=== PATIENT | male | born 1975 | race Caucasian/White ===

== ENCOUNTER 2021-02-18 11:27 | Outpatient (REF) | payer OTHER, SELFPAY ==
[2021-02-18 13:00] LABS: Influenza A PCR NEGATIVE (Negative); Influenza B PCR NEGATIVE (Negative); Resp Syncy Virus RNA Qual PCR NEGATIVE (Negative); SARS COV2 PCR INHOUSE NEGATIVE (Negative)
== END 2021-02-18 11:28 | disposition home or self-care (01) ==
LOC: HO.LNP 11:27
PROVIDERS: Visit Provider Family Medicine
DX: Z20.822 Contact with and (suspected) exposure to COVID-19 (principal)
CPT/HCPCS: 0241U

== ENCOUNTER 2022-12-21 13:24 | Outpatient (AMB) | payer OTHER, SELFPAY ==
--- NOTE | 2022-12-21 13:26 | MHC.PC.OV ---
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 Device Required: No Accompanied by: Self / Same As Patient Allergies Seasonal Allergies Allergy (Verified 12/21/22 13:57) stuffy nose, headaches hay fever Allergy (Uncoded 12/21/22 13:57) cough, headaaches coughing Medication List - Last Reconciled 12/21/22 by Chano Mensah CNP emtricitabine-tenofovir (TDF) 200-300 mg (Truvada) 1 tab PO Q24H 30 days fluoxetine 20 mg PO DAILY 30 days Tobacco use date assessed: 12/21/22 Dental Screening Dental Screen Date: 12/21/22 Did you have a dental visit in the last 12 months?: Yes Did you have a dental problem in the last 6 months where you did not have access to dental care?: No Was dental information given to patient?: Patient has dentist HPI HPI Comments History of Present Illness Details 47-year-old male presents for anxiety and depression follow-up He notes that he recently got from his . He reports improvement of his anxiety and depression symptoms since his . He notes that he has more time to himself and feels more peaceful. He admits to taking his fluoxetine as prescribed. He denies acute symptoms. He notes that he exercises at the gym 5 days a week and runs 3-5 miles daily. [facility] Surgical History History of appendectomy Family History (Updated 12/21/22 @ 13:32 by Bravo Barksdale CMA) Mother Arthritis Mental health disorder Father Pancreatic cancer Family/Other Bipolar disorder Family/Other Mental health disorder Maternal Uncle Substance abuse Maternal Grandmother No problems noted. 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 1. Little interest or pleasure in doing things: nearly every day 2. Feeling down, depressed, or hopeless: several days 3. Trouble falling or staying asleep, or sleeping too much: more than half the days 4. Feeling tired or having little energy: several days 5. Poor appetite or overeating: not at all 6. Feeling bad about yourself - or that you are a failure or have let yourself or your family down: several days 7. Trouble concentrating on things, such as reading the newspaper or watching television: not at all 8. Moving or speaking so slowly that other people could have noticed. Or the opposite - being so fidgety or restless that you have been moving around a lot more than usual: not at all 9. Thoughts that you would be better off or of hurting yourself in some way: not at all Total score: 8 Depression Screening Interpretation: Positive Depression Screening Follow-up: Existing condition and In treatment 69342 - PHQ-9 Billing: Yes Source: Developed by Drs. Marquez Oates, Flora Hudson, Renaldo Mario and colleagues, with an educational zia from [employer]. Thrive Questionnaire Date Thrive assessed: 07/18/22 AUDIT C Alcohol Use Questionnaire (AUDIT-C) 1. How often do you have a drink containing alcohol?: 2-3 times a week 2. How many drinks containing alcohol do you have on a typical day when you are drinking?: 3 or 4 3. How often do you have six or more drinks on one occasion?: Never Total Score: 4 AMAN-7 AMB Questionnaire AMAN-7 Date AMAN - 7 assessed: 12/21/22 Feeling nervous, anxious, or on edge: 1 = Several days Not being able to stop or control worryin = Several days Worrying too much about different things: 1 = Several days Trouble relaxin = Several days Being so restless that it is hard to sit still: 0 = Not at all Becoming easily annoyed or irritable: 3 = Nearly every day Feeling afraid as if something awful might happen: 1 = Several days Total AMAN-7 score (0-4 normal; 5-9 mild; 10-14 moderate; 15-21 severe): 8 Source: Developed by Drs. Marquez Oates, Flora Hudson, Renaldo Mario and colleagues, with an educational zia from [employer]. AMAN-7 Assessment Billing AMAN-7 Assessment Tool: AMAN-7 Assessment 77156 Review of Systems Const Details: Const Denies chills, Denies fatigue, Denies fever(s), Denies headache(s) and Denies weakness ENT Denies dizziness and Denies headache(s) Card Denies chest pain, Denies lightheadedness, Denies dyspnea and Denies other (Palpitations) Resp Denies cough, Denies dyspnea, Denies wheezing and Denies other ( shortness of breath) GI Denies abdominal pain, Denies melena, Denies hematochezia, Denies change in bowel habits, Denies dyspepsia and Denies nausea Denies hematuria and Denies dysuria Musc Denies abnormal gait, Denies myalgias, Denies arthralgias, Denies numbness and Denies tingling Skin/Breast Denies rash, Denies unusual bruising and Denies wounds Neuro Denies abnormal gait, Denies dizziness, Denies headache(s), Denies memory loss, Denies numbness, Denies Sensory deficit (Neuro), Denies tingling and Denies weakness Psych Denies anxiety and Denies depression, Denies memory loss Endo Denies fatigue Aller/Immun Denies wheezing Physical exam (Primary Care) Vital Signs: Last Vital Signs Pulse 76 12/21/22 13:28 BP 132/70 12/21/22 13:28 Pulse Ox 98 12/21/22 13:28 BMI result Body Mass Index 24.7 Tobacco/Smoking Status: Tobacco use Status Tobacco use date assessed 12/21/22 12/21/22 13:37 Patient Tobacco Use Status Former Tobacco user 12/21/22 13:37 e-Cigarette/Vaping Use Never Used 12/21/22 13:37 PHQ-9: PHQ-9 Score PHQ-9: Total score 8 12/21/22 13:37 Depression Screening Interpretation: Positive Depression Screening Follow-up: Existing condition and In treatment Thrive Assessment: Date of Thrive Assessment Date Thrive assessed 07/18/22 12/21/22 13:37 Const Other: General: no acute distress and well developed Nutritional Appearance: well nourished Orientation/consciousness: patient oriented x3 [facility] Head: Yes normocephalic and Yes atraumatic Eyes General: appearance normal, both eyes and all related structures Pupils: Equal, round and reactive pupils present EOM: EOMs intact bilaterally Resp Effort & Inspection: normal respiratory effort Auscultation: clear to auscultation bilaterally Cardio Rate: regular rate Rhythm: regular rhythm Heart sounds: S1 normal heart sound present, S2 normal heart sound present, no gallops, no murmurs and no rubs GI Palpation (GI): No Abdominal aortic bruit present, Soft to palpation, nontender, No hepatosplenomegaly present and No Rebound tenderness present Auscultation: normal bowel sounds General: Yes no CVA tenderness Back/Spine/Pelvis Back: no CVA tenderness Cervical Spine: cervical ROM normal and No Cervical spine tenderness Thoracic/Lumbar Spine: thoraco-lumbar ROM normal, No pain with thoraco-lumbar ROM, No thoracic spinal tenderness and No lumbar spinal tenderness Extrem General: Yes normal to inspection, No edema and No calf tenderness Skin General: warm and dry. Normal skin color. Normal skin turgor Lesions: no lesions Rashes: no rashes Trauma: no lacerations or abrasions Wounds: no wounds Nails: normal Neuro General: patient oriented x3, gait normal and no focal neuro deficit Cranial nerves: Yes Equal, round and reactive pupils present Cognition (Neuro): normal cognition Gait exam (Neuro): Normal gait present Sensory Exam: No Sensory deficit (Neuro) Psych Appearance: grossly normal Affect: normal affect Attitude: cooperative Thought process: Normal thought process present Assessment and Plan Assessment & Plan (1) Anxiety and depression: Code(s): F41.9 - Anxiety disorder, unspecified; F32.A - Depression, unspecified Plan: PHQ-9 and AMAN-7 scores revealed mild anxiety and depression Continue to take fluoxetine as prescribed Routine exercise encouraged Advised to get fasting blood work done before next visit Follow-up in 1 month for complete physical exam Return sooner with new or worsening symptoms Verbalized understanding and agreed with treatment plan. Orders: Orders Testosterone, Total Today F32.A - Depression, unspecified, F41.9 - Anxiety disorder, unspecified UA CC w/rflx Micro + Cult Today Z00.00 - Encounter for general adult medical examination without abnormal findings Medications: Refilled fluoxetine 20 mg PO DAILY 30 caps 3RF 30 days Coding Level of Care Code Est Pt Level 3 (88962) Diagnoses Anxiety and depression F41.9; F32.A Additional Codes AMAN-7 Assessment Billing - AMAN-7 Assessment Tool: AMAN-7 Assessment 17948 ([id number]) Time Spent (min) 25
[2022-12-21 13:28] VITALS: BP 132/70; PULSE 76; O2SAT 98; BMI 24.7
== END 2022-12-21 14:14 | disposition home or self-care (01) ==
PROVIDERS: PCP Nurse Practitioner Family; Visit Provider Nurse Practitioner Family
DX: F41.9 Anxiety disorder, unspecified (principal); F32.A Depression, unspecified
CPT/HCPCS: 99213